=== PATIENT | female | born 2000 | race Caucasian/White ===

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

== ENCOUNTER 2021-06-08 16:37 | Inpatient (IN) ==
[2021-06-08] MEDS ORDERED: OXYTOCIN 30 UNITS/500 ML BAG IV PRN ×2 (16:49→20:04)
[2021-06-08] MEDS ORDERED: LACTATED RINGER'S 1,000 ML IV PRN (16:49)
[2021-06-08] MEDS ORDERED: PENICILLIN G POTASSIUM 6 MU in DEXTROSE 5% 250 ML IV STA (17:14)
--- NOTE | 2021-06-08 17:21 | History & Physical Report ---
Date of Service June 08, 2021 Assessment & Plan (1) : (2) No care in current : Plan: Patient in advanced labor and will be having a baby with us. Once admitted will try to get some ultrasound parameters for dating, but may not be able to get those. Will attempt epidural. Will attempt to get pcn on board for unknown gbs status. Really have no idea of ga, but likely >32 weeks given appearance of the fetus on efm. Will have peds available at delivery. Anticipate . Will get routine pnl, urine drug tox, attempt to get cultures but may not be able to obtain with advanced cervical dilation and bleeding. fetus is category one. History of Present Illness Chief Complaint: abdominal pain Primary Care Provider: NO PCP Patient is a 20yowf with unknown lmp who presented to labor and delivery from the ED because of unknown and suspected contractions. Patient evans s no idea of her lmp as she has had intermittent bleeding on and off. 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 She notes she has a hx of irregular periods in the past. She thinks her last normal flow period was in july or august. She had onset of bleeding last night at [place] and started having pains at that point. Cannot really tell us when pain increased/changed. She has needed two pads because of bleeding today. The pad she had on had bloody/mucous/?fluid. Patient notes she did not know she was but does not that she has felt some fluttering in her belly for at least two months. She is accompanied by Darrion who notes he thought she was for at least the last 4-5 months. She did not notice that her belly got bigger. She describes pain of 10/10 with contractions. She has had no pnc. Patient denies use of tobacco, alcohol or any ilicit drugs in the last several months. Allergies Allergy/AdvReac Type Severity Reaction Status Date / Time No Known Allergies Allergy Unknown Unverified 06/08/21 16:47 Patient History Surgical History History of placement of ear tubes Social History Smoking Status: Never smoker Hx Alcohol Use: No Hx Substance Use: No Preferred Language: Hungarian Communication Ability: Effective Visual Impairment: No Limitations Hearing Ability: Normal First Assistant Required: No Beliefs That Will Affect Care: None marital status: Single Current Living Situation: Family Current Living Situation Comment: grandma current occupational status: unemployed Other Information That Helps Us Care for You: No Feels Safe at Home: Yes Safety Concerns: Feels Safe At This Time Dental Care, Regularly: No Assistive Devices: None OB History 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 Physical Exam Constitutional: WD/WN, vitals as above Gastrointestinal (Abdomen): soft, gravid Psychiatric: A+Ox3, euthymic affect Genitourinary: sse--blood noted at the introitus, visible membranes and advanced dilation, membranes appear intact, no pool, bloody show sve--8-9/100/-1 toco--q4-5min efm--130s with mod variability, accels to 160s, no decels Results & Data ([facility]) Vital Signs (Past 12 Hours) Vital Signs Temp Pulse Resp BP 06/08/21 16:45 36.8 C 120 H 20 125/91 Coding Level of Care Code None Diagnoses Z34.90 No care in current O09.30
--- NOTE | 2021-06-08 17:43 | Communication Note ---
Date of Service: June 08, 2021 Patient declines epidural. Notes she feels like she has to push. cx--/0 Brief BS US--placenta ant and fundal, by my poor measurements--bpd-term, F L--35-36 Plan to arom once pcn running and anticipate . Peds aware of my estimation that we are term or close to it. fht category one. anticipate .
[2021-06-08 17:51] LABS: Alanine Aminotransferase 13 U/L (7-52); Albumin Globulin Ratio 1.2 (0.9-2); Albumin Level 3.6 gm/dl (3.4-5.0); Alkaline Phosphatase 202 U/L (34-104); Anion Gap 15 (3-11); Aspartate Aminotransferase 17 U/L (13-39); BUN Creatinine Ratio 18.3 (10-20); Bilirubin,Total 0.6 mg/dl (0.2-1.0); Blood Urea Nitrogen 13 mg/dl (6-23); Calcium 8.8 mg/dl (8.5-10.1); Carbon Dioxide 16 mmol/L (21-32); Chloride 102 mmol/L (98-107); Est GFR (African American) 142.1 ml/min; Est GFR (Non-African American) 122.6 ml/min; Globulin 3.1 gm/dl (2.5-4.0); Glucose 91 mg/dl (70-99(Fasting)); Sodium 133 mmol/L (136-145); Total Protein 6.7 gm/dl (6.0-8.3)
--- NOTE | 2021-06-08 17:52 | Communication Note ---
Date of Service: June 08, 2021 Dipped large ketones and +4 protein--so obviously dehydrated, we are hydrating her currently. Her pressures are elevated but she is very painful and I suspect this is the primary reason. No s/s of pet presently. Will continue to monitor closely.
[2021-06-08 17:53] LABS: Hematocrit (blood only) 36.1 % (37-47); Hemoglobin 12.1 g/dL (12.0-16.0); Mean Corpuscular Hemoglobin 28.1 pg (25-34); Mean Corpuscular Hgb Conc 33.5 g/dL (32-36); Mean Corpuscular Volume 83.8 fL (80-100); Mean Platelet Volume 13.9 fL (7.4-10.4); Nucleated RBC # (auto) 0.02 K/uL (0-0); Nucleated RBC % (auto) 0.1 %; Platelet Count 239 K/uL (130-400); RDW Standard Deviation 39.4 fL (36.4-46.3); Red Blood Count 4.31 M/uL (4.2-5.4); White Blood Count 12.98 K/uL (4.8-10.8)
[2021-06-08 18:06] LABS: Amphetamines+Metham, Urine Neg (Neg); Barbiturates, Urine Neg (Neg); Benzodiazepine, Urine Neg (Neg); Cocaine, Urine Neg (Neg); MDMA (Ecstacy), Urine Neg (Neg); Methadone, Urine Neg (Neg); Opiate, Urine Neg (Neg); Phencyclidine, Urine Neg (Neg)
[2021-06-08 18:41] LABS: Rubella IgG Ab Immune (Immune)
[2021-06-08] MEDS ORDERED: LIDOCAINE 1% LOCAL 20 ML VIAL ONE (18:49)
[2021-06-08] MEDS ORDERED: oxyCODONE/ACETAMINOPHEN 5mg/325mg TAB PO PRN (19:10)
[2021-06-08] MEDS ORDERED: HYDROCORTISONE ACETATE 25 MG SUPP PR PRN ×2 (19:13→20:04)
[2021-06-08] MEDS ORDERED: BENZOCAINE 20% AER SPR 82.5 GM CAN EXT PRN ×2 (19:13→20:04)
--- NOTE | 2021-06-08 19:19 | Delivery Summary ---
Vaginal Delivery Summary Date of Service June 08, 2021 Vaginal Delivery Summary and 1st Degree LAC Pre-operative Diagnosis: , unknown gestation active labor no care Post-operative Diagnosis: same, fetus appears to be term Procedure: arom repair of first degree and left labial laceration EBL: 400cc Anesthesia: local infiltration of lidocaine to the vulva/perineum Procedure: the patient presented to labor and delivery, was found to be and in active labor at 8-9cm. By ultrasound parameters appeared to be term. The patient underwent arom for clear fluid. She progressed to c/c/+1. The patient pushed for 15 minutes to deliver a viable female in kirstie position. The nose and mouth were bulb suctioned on the perineum and the rest of the infant was then delivered without difficulty. The baby was vigorous. The nose and mouth were again bulb suctioned and the infant was placed in the maternal abdomen for drying and attention. Cord was clamped and cut at one minute of life. Cord blood and segment obtained. Placenta delivered spontaneous, intact with a three vessel cord. Cervix/sulci/rectum were intact. A first degree perineal laceration and left labial laceration repaired in the normal standard fashion. Hemostasis obtained with dilute pitocin and fundal massage. Apgars were 8/9. Mother and baby doing well at the end of the delivery. [facility] Vaginal Delivery Charge Delivery Type Details: and 1st Degree LAC
[2021-06-08] MEDS ORDERED: ACETAMINOPHEN 325 MG TAB PO PRN (20:04)
[2021-06-08] MEDS ORDERED: SUPERCREAM 0.870% 15 GM JAR EXT PRN (20:04)
[2021-06-08] MEDS ORDERED: DIPHTHERIA/TETANUS/PERTUSSIS 0.5 ML SYR/VIAL IM ONE (20:04)
[2021-06-08] MEDS ORDERED: bisacodyL 10 MG SUPP PR PRN (20:04)
[2021-06-08] MEDS ORDERED: PENICILLIN G POTASSIUM 3 MU in DEXTROSE 5% 100 ML IV PRN (20:11)
[2021-06-08] MEDS: IBUPROFEN 600 MG TAB PO PRN (20:12)
[2021-06-09] MEDS: IBUPROFEN 600 MG TAB PO PRN ×2 (05:00→12:28)
[2021-06-09 06:45] LABS: Hematocrit (blood only) 31.6 % (37-47); Hemoglobin 10.6 g/dL (12.0-16.0); Mean Corpuscular Hemoglobin 28.2 pg (25-34); Mean Corpuscular Hgb Conc 33.5 g/dL (32-36); Mean Platelet Volume 13.4 fL (7.4-10.4); Platelet Count 209 K/uL (130-400); RDW Coefficient of Variation 13.1 % (11.5-14.5); RDW Standard Deviation 39.8 fL (36.4-46.3); Red Blood Count 3.76 M/uL (4.2-5.4); White Blood Count 16.32 K/uL (4.8-10.8)
--- NOTE | 2021-06-09 07:40 | Obstetrical Progress Note ---
Date of Service <Cassie Tomlin DO - Last Filed: 06/09/21 07:40> June 09, 2021 Assessment & Plan <Cassie Tomlin - Last Filed: 06/09/21 07:40> (1) Encounter for care and examination after delivery: (2) No care in current : 20 yo post day[facility], doing well. -Continue routine post care. -vital signs reviewed and WNL (Tmax 36.9) -Blood Type O+, GBS-, Rubella - -Encourage ambulation, monitor and control pain with Motrin, tylenol PRN, resume regular diet, monitor lochia -encourage breast feeding with bottle supplementation -hemoglobin 10.6 -continue with maternal education -awaiting case management social worker Day #:: 1 <Elaine Alaniz MD, FACOG - Last Filed: 06/09/21 07:49> (1) Encounter for care and examination after delivery: (2) No care in current : Subjective <Cassie Tomlin - Last Filed: 06/09/21 07:40> Ambulation: ambulating normally Voiding: no voiding problems Passing Gas:: No Diet Tolerance:: regular diet Lochia:: Small Feeding Type:: breast feeding (with bottle supplementation) Current Pain Level(1-10): 6 Review of Systems Negative fever chills Negative headache dizziness Negative chest pain palpitations SOB Negative nausea vomitting diarrhea constipation Negative numbness tingling rash swelling Physical Exam <Cassie Tomlin - Last Filed: 06/09/21 07:40> General: Alert, oriented. No acute distress. Cardiac: Regular rate and rhythm, no murmurs/rubs/gallops. Respiratory: Clear to auscultation bilaterally a/p, no wheezes/rales/rhonchi. No increased work of breathing. Symmetrical chest rise. No respiratory distress. Abdomen: Soft, nontender, nondistended. Bowel sounds present. Uterus: Uterine fundus firm, palpable 2 cm below umbilicus. Lower Extremities: No lower extremity edema or swelling. No deep calf pain. Denae's negative bilaterally.. Results & Data ([facility]) <Cassie NaborDO - Last Filed: 06/09/21 07:40> Vital Signs (Past 12 Hours) Vital Signs Temp Pulse Pulse Resp BP BP Pulse Ox 06/09/21 04:50 36.9 C 93 H 16 128/90 06/08/21 23:20 36.9 C 114 H 18 135/93 06/08/21 21:40 36.8 C 109 H 18 126/88 98 06/08/21 21:22 117 H 129/81 06/08/21 21:07 110 H 20 129/82 06/08/21 20:52 122 H 143/104 H 06/08/21 20:37 115 H 20 137/100 06/08/21 20:22 111 H 136/96 06/08/21 20:07 110 H 20 127/92 06/08/21 19:52 103 H 20 121/85 06/08/21 19:39 20 06/08/21 19:37 115 H 132/91 <Elaine Alaniz MD, FACOG - Last Filed: 06/09/21 07:49> Co-Signing Physician Notes Resident Physician Supervision Note: I interviewed and examined the patient. Discussed with Dr. Tomlin and agree with findings and plan as documented in the note. Any exceptions or clarifications are listed here: No pnc. GBS unknown and not fully treated. Struggling with breast feeding. Will need SS consult for evaluation. Otherwise doing well. Documented By: Elaine Alaniz MD, FACOG Resident Activity Tracking <Cassie Tomlin DO - Last Filed: 06/09/21 07:40> Resident Involvement: Resident Care Provided Care Provided: Adult [facility]
[2021-06-09] MEDS: PRENATAL VITAMIN 1 TAB PO SCH (07:55)
[2021-06-09] MEDS: DOCUSATE SODIUM 100 MG CAP PO SCH ×2 (07:55→19:53)
--- NOTE | 2021-06-09 07:55 | Medical Student Progress Note ---
Date of Service June 09, 2021 Assessment & Plan (1) Encounter for care and examination after delivery: Plan: - ; estimated full term - hgb 10.6, hct 36.1 - pt received no pnc, unaware of until labor - will appreciate social service and consult - discussed f/u with [facility] in 6 weeks Admission and Anticipated Discharge Date Admission Date: June 08, 2021 Subjective Patient was seen at beside, holding . She did well overnight albeit not sleeping due to baby being fussy and needing to be held. She noted baby being unable to latch properly on her R nipple; she has tried using a nipple guard and was only able to have baby latch for max 5mn. Baby is able to latch of L nipple fine. She expressed wanting to also start bottle feeding, so FOB can feed baby. She endorses ambulating and urinating with no significant issues. She denies passing gas/BM. Her vaginal bleeding has slowed down; changed her pad x2. She did not appreciate any clots. She rates her pain as 6/10. Otherwise, she denies f/c, lightheadedness/dizziness, chest pain/palpitation, SOB, LE pain. Physical Exam Constitutional: Resting comfortable in bed. Appears well, in no acute distress. Respiratory: Normal respiratory efforts. Lungs are clear to auscultation in all lung [place]. Cardiovascular: Regular rate and rhythm. No r/m/g. Cap refill <2s. No LE edema. Gastrointestinal (Abdomen): Soft, nondistended, non tender. Neurologic: Alert and oriented x3 Psychiatric: Appropriate mood and affect. Genitourinary: Fundus is firm, non tender, located 3 cm below umbilicus. Results & Data ([facility]) Vital Signs (Past 12 Hours) Vital Signs Temp Pulse Pulse Resp BP BP Pulse Ox 06/09/21 04:50 36.9 C 93 H 16 128/90 06/08/21 23:20 36.9 C 114 H 18 135/93 06/08/21 21:40 36.8 C 109 H 18 126/88 98 06/08/21 21:22 117 H 129/81 06/08/21 21:07 110 H 20 129/82 06/08/21 20:52 122 H 143/104 H 06/08/21 20:37 115 H 20 137/100 06/08/21 20:22 111 H 136/96 06/08/21 20:07 110 H 20 127/92 06/08/21 19:52 103 H 20 121/85 Supervising Attestation Patient seen and evaluated wt resident, please see note.
[2021-06-09 08:37] LABS: Hepatitis B Surf Ag Rflx Conf Neg (Neg)
[2021-06-09 09:05] LABS: Hepatitis C IgG 13Yrs+Old_Rflx Neg (Neg)
[2021-06-09] MEDS ORDERED: bisacodyL 5 MG TABEC PO SCH (20:00)
[2021-06-10 06:48] LABS: Hematocrit (blood only) 31.6 % (37-47); Hemoglobin 10.1 g/dL (12.0-16.0)
--- NOTE | 2021-06-10 07:23 | Obstetrical Progress Note ---
Date of Service <Cassie Tomlin DO - Last Filed: 06/10/21 07:23> June 10, 2021 Assessment & Plan <Cassie Tomlin DO - Last Filed: 06/10/21 07:23> (1) Encounter for care and examination after delivery: (2) No care in current : 20 yo post day2 from [facility], doing well. -Continue routine post care. -vital signs reviewed and WNL (Tmax 37) -Blood Type O+, GBS-, Rubella - -Encourage ambulation, monitor and control pain with Motrin, tylenol PRN, resume regular diet, monitor lochia -encourage breast feeding with bottle supplementation -hemoglobin 10.6 -continue with maternal education -patient interested in discharge today Day #:: 2 <Sima Farooq MD, FACOG - Last Filed: 06/10/21 08:32> (1) Encounter for care and examination after delivery: (2) No care in current : Subjective <Cassie Tomlin - Last Filed: 06/10/21 07:23> Ambulation: ambulating normally Voiding: no voiding problems Passing Gas:: Yes Diet Tolerance:: regular diet Lochia:: Small Feeding Type:: breast feeding (with bottle) Current Pain Level(1-10): 0 Review of Systems Negative fever chills Negative headache dizziness Negative chest pain palpitations SOB Negative nausea vomitting diarrhea constipation Negative numbness tingling rash swelling Physical Exam <Cassie Tomlin DO - Last Filed: 06/10/21 07:23> General: Alert, oriented. No acute distress. Cardiac: Regular rate and rhythm, no murmurs/rubs/gallops. Respiratory: Clear to auscultation bilaterally a/p, no wheezes/rales/rhonchi. No increased work of breathing. Symmetrical chest rise. No respiratory distress. Abdomen: Soft, nontender, nondistended. Bowel sounds present. Uterus: Uterine fundus firm, palpable 2 cm below umbilicus. Lower Extremities: No lower extremity edema or swelling. No deep calf pain. Denae's negative bilaterally.. Results & Data ([facility]) <Cassie Tomlin - Last Filed: 06/10/21 07:23> Vital Signs (Past 12 Hours) Vital Signs Temp Pulse Resp BP 06/09/21 23:30 37 C 93 H 18 129/82 <Sima Farooq MD, FACOG - Last Filed: 06/10/21 08:32> Co-Signing Physician Notes Resident Physician Supervision Note: I was present with Dr. Tomlin during the history and exam. I discussed the case with the resident and agree with the findings and plan as documented in the note. Any exceptions or clarifications are listed here: stable, doing well. reports mood good. had migraine last pm and has history of migraines and opted not to take any pain killers. breast/rhpos/ri. instructions reviewed. ext nt calves, abd ff 2 down nt. f/u 6wk pp check. needs to call. GBS not done--differs from resident report above. Documented By: Sima Farooq MD, FACOG Resident Activity Tracking <Cassie Tomlin DO - Last Filed: 06/10/21 07:23> Resident Involvement: Resident Care Provided Care Provided: Adult Hospital Medicine
[2021-06-10] MEDS: PRENATAL VITAMIN 1 TAB PO SCH (08:04)
[2021-06-10] MEDS: DOCUSATE SODIUM 100 MG CAP PO SCH (08:05)
[2021-06-10 15:26] LABS: Chlamydia Trach RNA NOT DETECTED (NOT DETECTED); GC (Neis gonorrhoeae) RNA NOT DETECTED (NOT DETECTED)
== END 2021-06-10 15:50 | disposition home or self-care (01) | DRG 807 ==
LOC: OPB 16:37 → 4S1 16:41 → 4S2 21:35

== ENCOUNTER 2023-03-11 04:15 | Inpatient (IN) ==
[2023-03-11] MEDS ORDERED: LIDOCAINE 1% LOCAL 20 ML VIAL INFIL PRN (05:05)
[2023-03-11] MEDS ORDERED: OXYTOCIN 30 UNITS/500 ML BAG IV PRN ×2 (05:05→11:09)
--- NOTE | 2023-03-11 05:31 | History & Physical Report ---
Date of Service March 11, 2023 Assessment & Plan (1) Encounter for supervision of normal in multigravida: Plan: 22 yo admitted in labor VSS Fetus cat 1 Labor augment prn GBS neg wants to go unmedicated Admission and Anticipated Discharge Date Admission Date: March 11, 2023 History of Present Illness Chief Complaint: ctx Primary Care Provider: Lisette Soto, DO 22 yo at 39 2/7 wga presents w/ ctx. 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 Past [employer] [employer] MAGISTRATE Hx: 2021 irreg cycles 11/2022 neg cyto denies hx stis Allergies Allergy/AdvReac Type Severity Reaction Status Date / Time No Known Allergies Allergy Unknown Verified 03/07/23 13:26 Home Medications Medication Instructions Recorded Confirmed Type albuterol sulfate 0.63 mg/3 mL 1 mg 03/11/23 History solution for nebulization ferrous sulfate 325 mg (65 mg 325 mg PO DAILY 03/11/23 03/11/23 History iron) tablet (iron) vit no.133-ferrous 1 tab PO DAILY 03/11/23 03/11/23 History fumarate 28 mg-folic acid 800 mcg tablet () Patient History Medical History (Updated 10/31/22 @ 14:29 by Delaney Wolff) Varicella vaccination Migraine with aura vision loss Obesity Surgical History History of placement of ear tubes Family History Family/Other Breast cancer Mother Bipolar 1 disorder Father Diabetes Denies family history of Ovarian cancer Colorectal cancer Social History (Updated 10/31/22 @ 14:18 by Delaney Wolff) Smoking Status: Never smoker Do You Dip or Chew Tobacco: No; Hx Alcohol Use: No Hx Substance Use: No Preferred Language: Spanish Communication Ability: Effective Visual Impairment: No Limitations Hearing Ability: Normal Mechanical Sound Technician Required: No Beliefs That Will Affect Care: None marital status: Single marital status details: RICKY Bullock (20) [phone] Current Living Situation: Family and Significant Other Current Living Situation Comment: lives with fob, daughter, his grandparents, dog current occupational status: unemployed How many Children do You have: 1 Other Information That Helps Us Care for You: No Feels Safe at Home: Yes Safety Concerns: Feels Safe At This Time Diet: regular Dental Care, Regularly: No Assistive Devices: None Physical Exam Genitourinary: OB Exam Monitor Tracing: + external FHT monitor used, + external uterine monitor used (q5) and + category I (125/mod/+accel/-decel) SVE 3/90/-2 by nursing Results & Data Vital Signs (Past 12 Hours) Vital Signs Temp Pulse Resp BP 03/11/23 04:57 113 H 123/73 03/11/23 04:37 98.1 F 92 H 18 125/95 03/11/23 04:29 98.1 F 92 H 18 125/95 Laboratory Results OB Labs: Blood Type O Positive 11/10/22 Antibody Screen NEGATIVE 11/10/22 Hemoglobin 11.2 g/dl (12.0-16.0) L 12/27/22 Hematocrit 34.4 % (37.0-47.0) L 12/27/22 Mean Corpuscular Volume 81.8 fL (80.0-100.0) 11/10/22 Platelet Count 274 K/uL (130-400) 11/10/22 Rubella IgG Antibody Immune (Immune) 11/10/22 Rapid Plasma Reagin Nonreactive (Nonreactive) 11/10/22 Hepatitis B Surface Antigen Neg (Neg) 06/08/21 Hepatitis B Surface Antigen. 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
[2023-03-11] MEDS: LACTATED RINGER'S 1,000 ML IV PRN ×2 (05:40→07:53)
[2023-03-11] MEDS: BUTORPHANOL TARTRATE 1 MG/ML VIAL IV PRN ×2 (05:49→07:38)
[2023-03-11 06:27] LABS: Hematocrit (blood only) 38.3 % (37.0-47.0); Hemoglobin 12.8 g/dl (12.0-16.0); Mean Corpuscular Hemoglobin 27.6 pg (25.0-34.0); Mean Corpuscular Hgb Conc 33.4 g/dL (32.0-36.0); Mean Corpuscular Volume 82.5 fL (80.0-100.0); Mean Platelet Volume 12.9 fL (9.4-12.4); Platelet Count 162 K/uL (130-400); RDW Standard Deviation 40.6 fL (36.4-46.3); Red Blood Count 4.64 M/uL (4.20-5.40)
--- NOTE | 2023-03-11 09:54 | Labor Progress Brief Note ---
Date of Service March 11, 2023 Subjective Sitting up, does not desire epidural. Last RN exam . FHT Cat 1 [place] Q 2 Continue labor, anticipate . Assessment & Plan Admission and Anticipated Discharge Date Admission Date: March 11, 2023 Results & Data Vital Signs (Past 12 Hours) Vital Signs Temp Pulse Resp BP Pulse Ox 03/11/23 09:51 121 H 98 03/11/23 09:46 130 H 98 03/11/23 09:41 111 H 98 03/11/23 09:36 121 H 97 03/11/23 09:31 104 H 94 03/11/23 09:27 111 H 134/84 03/11/23 09:26 121 H 99 03/11/23 09:21 114 H 96 03/11/23 09:16 126 H 99 03/11/23 09:11 36.7 C 20 03/11/23 09:11 123 H 99 03/11/23 09:06 135 H 100 03/11/23 09:01 100 H 98 03/11/23 08:56 129 H 98 03/11/23 08:51 113 H 98 03/11/23 08:46 118 H 98 03/11/23 08:41 117 H 97 03/11/23 08:36 116 H 98 03/11/23 08:31 133 H 97 03/11/23 08:26 107 H 97 03/11/23 08:21 117 H 96 03/11/23 08:16 117 H 96 03/11/23 08:11 125 H 98 03/11/23 08:06 121 H 96 03/11/23 08:01 106 H 98 03/11/23 07:56 108 H 95 03/11/23 07:51 117 H 97 03/11/23 07:46 116 H 97 03/11/23 07:42 112 H 136/87 03/11/23 07:41 112 H 96 03/11/23 07:36 113 H 98 03/11/23 07:28 121 H 98 03/11/23 07:23 116 H 98 03/11/23 07:22 36.8 C 20 03/11/23 07:20 120 H 131/86 03/11/23 07:18 135 H 99 03/11/23 07:13 117 H 100 03/11/23 07:08 96 H 97 03/11/23 07:03 108 H 98 03/11/23 06:58 112 H 100 03/11/23 06:53 110 H 95 03/11/23 06:48 100 H 95 03/11/23 06:43 100 H 95 03/11/23 06:38 98 H 96 03/11/23 06:33 97 H 95 03/11/23 06:28 106 H 94 03/11/23 06:23 94 H 96 03/11/23 06:18 99 H 95 03/11/23 06:13 90 93 03/11/23 06:08 120 H 96 03/11/23 06:03 90 92 03/11/23 05:58 104 H 93 03/11/23 05:53 113 H 93 03/11/23 05:48 105 H 92 03/11/23 05:43 112 H 94 03/11/23 05:38 94 03/11/23 05:38 94 H 03/11/23 05:38 112 H 92 03/11/23 04:57 113 H 123/73 03/11/23 04:37 36.7 C 92 H 18 125/95 03/11/23 04:29 36.7 C 92 H 18 125/95 Coding Level of Care Code None
--- NOTE | 2023-03-11 10:22 | Delivery Summary ---
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 Apgars: 8/9. Weight pending, please see nursery records. Estimated blood loss: 300ml Description of delivery: The patient progressed to complete without anesthesia. She then began to push. She spontaneously vaginally delivered a viable from the cephalic presentation. The head delivered in LUANA position. Nuchal x 1, easily reduced. The anterior shoulder delivered, followed by the posterior shoulder, followed by the body. The baby was placed on mother's abdomen and a spontaneous cry was heard. Delayed cord clamping was employed, and the cord was doubly clamped and cut. Cord blood was obtained. The placenta was delivered spontaneously intact with a 3-vessel cord. The uterus and vagina were swept of clots and debris. IV pitocin was given. The uterus became firm. The cervix, vagina, and perineum were inspected and no lacerations were noted. Excellent hemostasis was observed. The mother and baby are recovering in stable and good condition in the room. Sponge and instrument counts were correct x 2. Roselyn Pablo DO [facility] [place] Vaginal Delivery Charge Vaginal Delivery Codes: 33143 global code for the antepartum, delivery, and post- Delivery Type Details: [facility]
[2023-03-11] MEDS ORDERED: IBUPROFEN 600 MG TAB PO ONE (10:49)
[2023-03-11] MEDS ORDERED: DIPHTHERIA/TETANUS/PERTUSSIS Vaccine (Tdap, Age 7+yrs) 0.5mL SYR/VL IM ONE (11:09)
[2023-03-11] MEDS ORDERED: oxyCODONE/ACETAMINOPHEN 5mg/325mg TAB PO PRN (11:09)
[2023-03-11] MEDS ORDERED: HYDROCORTISONE ACETATE 25 MG SUPP PR PRN (11:09)
[2023-03-11] MEDS ORDERED: bisacodyL 10 MG SUPP PR PRN (11:09)
[2023-03-11] MEDS ORDERED: BENZOCAINE 20% SPRY 85 APPLN/85 GM CAN EXT PRN (11:09)
[2023-03-11] MEDS ORDERED: ACETAMINOPHEN 325 MG TAB PO PRN (11:09)
[2023-03-11] MEDS: IBUPROFEN 600 MG TAB PO PRN ×2 (17:09→20:43)
[2023-03-11] MEDS: DOCUSATE SODIUM 100 MG CAP PO SCH (20:43)
[2023-03-12 06:22] LABS: Hematocrit (blood only) 31.9 % (37.0-47.0); Hemoglobin 10.2 g/dl (12.0-16.0)
[2023-03-12] MEDS: IBUPROFEN 600 MG TAB PO PRN ×2 (06:46→22:09)
[2023-03-12] MEDS: DOCUSATE SODIUM 100 MG CAP PO SCH ×2 (09:02→20:28)
[2023-03-12] MEDS: PRENATAL VITAMIN 1 TAB PO SCH (09:02)
--- NOTE | 2023-03-12 09:44 | Obstetrical Progress Note ---
Date of Service March 12, 2023 Assessment & Plan (1) Encounter for care and examination after delivery: PPD#1 doing well. Routine care. Plans for DC home tomorrow. Consult to case management/child services to assess and help make plans for patient to care for self, baby, child at home. Subjective Ambulation: ambulating normally Voiding: no voiding problems Diet Tolerance:: regular diet Lochia:: Moderate Review of Systems All systems reviewed & are unremarkable except as noted in HPI & below Physical Exam Constitutional WD/WN, vitals as above no acute distress Respiratory normal respiratory effort Cardiovascular Rate/Rhythm: regular rate and regular rhythm Gastrointestinal (Abdomen) Inspection/Auscultation: abdomen normal to inspection; abdomen not distended Percussion/Palpation: abdomen soft Genitourinary OB Exam Abdomen: + fundal height Fundus: + firm; not tender Results & Data Vital Signs (Past 12 Hours) Vital Signs Temp Pulse Resp BP Pulse Ox O2 Del Method 03/12/23 07:33 36.7 C 84 18 127/79 97 Room Air 03/12/23 04:00 36.7 C 96 H 18 114/75 97 Room Air 03/11/23 23:30 36.6 C 93 H 18 128/91 98 Room Air
[2023-03-12] MEDS ORDERED: bisacodyL 5 MG TABEC PO SCH (20:00)
--- NOTE | 2023-03-13 06:17 | Obstetrical Progress Note ---
Date of Service <Danielle Kyle MD - Last Filed: 03/13/23 07:15> March 13, 2023 Assessment & Plan <Danielle Kyle MD - Last Filed: 03/13/23 07:15> (1) Encounter for assessment: Plan Patient with the above mentioned history and findings was evaluated at bedside and found awake, alert, oriented in all spheres, afebrile, and in no acute distress. Vital signs showed no fever and blood pressures remained stable and has remained without symptoms of severity (e.g. vision changes, headaches, oliguria, etc.). Her blood type is O positive and most recent hemoglobin is adequate at 10.2 g/dL. She is GBS negative and rubella immune. Overall, patient is doing well clinically. Since she is clinically and hemodynamically stable, will discharge today. She is to make an appointment with her OB for 6 weeks after discharge for follow up evaluation. Discharge instructions discussed. All questions were answered. <Roselyn Pablo DO - Last Filed: 03/13/23 07:27> (1) Encounter for assessment: Subjective <Danielle Kyle MD - Last Filed: 03/13/23 07:15> Missy is a 22 y/o female who is now PPD # 2 following at 39 2/7 weeks. Reports feeling well overall this morning. Refers mild abdominal cramping & 1/10 pain well managed on analgesics. Voiding spontaneously. Tolerating meals overnight and able to ambulate some. She is passing gas and has had bowel movements. Some persistent lochia with some improvement this morning. . Constitutional: no fever, no chills or no sweats Denies shortness of breath or difficulty breathing Cardiovascular: no chest pain or no palpitations Breast: no breast pain Genitourinary (female): no dysuria Neurologic: no headache(s) Denies changes in vision Physical Exam <Danielle Kyle MD - Last Filed: 03/13/23 07:15> General: Alert. Oriented to person, time, and place. Afebrile. No acute distress. Eyes: pupils equal and reactive to light bilaterally, extraocular movements intact. Cardiac: Regular rate and rhythm, no murmurs/rubs/gallops. Respiratory: Clear to auscultation bilaterally. No increased work of breathing. Symmetrical chest rise. No respiratory distress. Abdomen: Soft, nontender, nondistended. Bowel sounds present. Uterus: Uterine fundus firm, non-tender, and palpable below umbilicus. Lower Extremities:Mild extremity swelling. No deep calf pain. Denae's negative bilaterally. Psych: Euthymic affect. Mood and affect congruence. Regular speech rate and content. Results & Data <Danielle Kyle MD - Last Filed: 03/13/23 07:15> Vital Signs (Past 12 Hours) Vital Signs Temp Pulse Resp BP BP Pulse Ox O2 Del Method 03/12/23 23:00 36.6 C 93 H 18 110/74 98 Room Air 03/12/23 20:27 36.3 C L 110 H 18 120/77 Supervising Physician <Roselyn Pablo DO - Last Filed: 03/13/23 07:27> Co-Signing Physician Notes Resident Physician Supervision Note: I was present with Dr. Kyle during the history and exam. I discussed the case with the resident and agree with the findings and plan as documented in the note. Any exceptions or clarifications are listed here: PPD#2 doing well. DC home today. Waiting for word from [facility] whether there will be a visit here or if they feel a home visit is more appropriate. Documented By: Roselyn Pablo DO Resident Activity Tracking <Danielle Kyle MD - Last Filed: 03/13/23 07:15> Resident Involvement: Resident Care Provided Care Provided: OB Delivery
[2023-03-13] MEDS: DOCUSATE SODIUM 100 MG CAP PO SCH (09:09)
[2023-03-13] MEDS: PRENATAL VITAMIN 1 TAB PO SCH (09:09)
== END 2023-03-13 13:45 | disposition home or self-care (01) | DRG 807 ==
LOC: OPB 04:15 → 4S1 04:17 → 4E2 13:19